=== PATIENT | male | born 1935 | race Caucasian/White ===

== ENCOUNTER → 2023-04-06 12:00 | Outpatient (CLI) | payer MEDICARE, OTHER, SELFPAY ==
[2023-04-06 16:36] LABS: Basophils % 0.5 % (0.1-2.0); Eosinophils # 0.2 K/mm3 (0.0-0.4); Eosinophils % 2.5 % (0.1-12.0); Hematocrit 39.2 % (42.0-52.0); Hemoglobin 12.4 g/dL (14.1-18.0); Lymphocytes # 1.5 K/mm3 (0.7-4.5); Lymphocytes % 20.6 % (10-50); Mean Corpuscular HGB Conc 31.7 g/dL (31.8-35.4); Mean Corpuscular Hemoglobin 31.9 pg (27.0-31.2); Mean Corpuscular Volume 100.7 fl (80-94); Mean Platelet Volume 10.8 fl (7.4-10.4); Monocytes # 0.6 K/mm3 (0.1-1.0); Monocytes % 8.6 % (1.7-9.3); Neutrophils % 67.7 % (37.0-80.0); Platelet Count 301 K/mm3 (142-424); Red Cell Distribution Width 12.5 % (11.5-17.5); White Blood Count 7.3 K/mm3 (4.8-10.8)
[2023-04-06 18:11] LABS: Alanine Aminotransferase 22 U/L (12-78); Albumin Level 4.2 g/dl (3.5-5.0); Albumin/Globulin Ratio 1.4 (1.1-1.8); Alkaline Phosphatase 155 U/L (38-126); Anion Gap 14.8 mEq/L (5-15); Aspartate Amino Transferase 36 U/L (17-59); Bilirubin,Total 0.8 mg/dl (0.2-1.3); Blood Urea Nitrogen 21 mg/dl (9-20); Calcium 9.2 mg/dl (8.4-10.2); Carbon Dioxide 31 mmol/L (22.0-30.0); Chloride 98 mmol/L (98-107); Chol/HDL Ratio 6.4 (1-3.5); Cholesterol 197 mg/dl (140-200); Estimated Glomerular Filt Rate 63 ml/min (>60); GFR (African American) 76 ML/MIN (>60); Globulin 2.9 g/dL (1.3-3.2); Glucose 107 mg/dl (74-100); HDL Cholesterol 31 mg/dl (40-60); Potassium 4.8 mmoL/L (3.5-5.1); Sodium 139 mmol/L (136-145); Total Protein,Serum 7.1 g/dl (6.3-8.2); Triglycerides 205 mg/dl (30-150); VLDL Cholesterol 41 mg/dL (0-40)
[2023-04-06 18:20] LABS: Direct LDL Cholesterol 102.47 mg/dL (100-129)
[2023-04-06 22:02] LABS: Thyroid Stimulating Hormone 1.58 uIU/mL (0.465-4.68)
== END ==
PROVIDERS: PCP Family Medicine; Visit Provider Family Medicine
DX: I10 Essential (primary) hypertension (principal); Z00.00 Encounter for general adult medical examination without abnormal findings; E03.9 Hypothyroidism, unspecified
CPT/HCPCS: 80053; 80061; 84443; 85025

== ENCOUNTER → 2023-09-17 16:39 | Outpatient (CLI) | payer MEDICARE, OTHER, SELFPAY ==
[2023-09-17 16:43] LABS: Alanine Aminotransferase 25 U/L (12-78); Albumin/Globulin Ratio 1.5 (1.1-1.8); Alkaline Phosphatase 119 U/L (38-126); Anion Gap 10.4 mEq/L (5-15); Aspartate Amino Transferase 45 U/L (17-59); Bilirubin,Total 0.6 mg/dl (0.2-1.3); Blood Urea Nitrogen 18 mg/dl (9-20); Calcium 8.7 mg/dl (8.4-10.2); Carbon Dioxide 32 mmol/L (22.0-30.0); Chloride 99 mmol/L (98-107); Chol/HDL Ratio 4.7 (1-3.5); Cholesterol 145 mg/dl (140-200); Estimated Glomerular Filt Rate 63 ml/min (>60); GFR (African American) 76 ML/MIN (>60); Globulin 2.6 g/dL (1.3-3.2); Glucose 90 mg/dl (74-100); HDL Cholesterol 31 mg/dl (40-60); Potassium 4.4 mmoL/L (3.5-5.1); Sodium 137 mmol/L (136-145); Total Protein,Serum 6.6 g/dl (6.3-8.2); Triglycerides 136 mg/dl (30-150); VLDL Cholesterol 27 mg/dL (0-40)
[2023-09-17 16:47] LABS: Basophils % 0.3 % (0.1-2.0); Eosinophils # 0.1 K/mm3 (0.0-0.4); Eosinophils % 1.4 % (0.1-12.0); Hematocrit 37.5 % (42.0-52.0); Hemoglobin 12.3 g/dL (14.1-18.0); Lymphocytes # 1.3 K/mm3 (0.7-4.5); Lymphocytes % 26.4 % (10-50); Mean Corpuscular HGB Conc 32.8 g/dL (31.8-35.4); Mean Corpuscular Hemoglobin 33.5 pg (27.0-31.2); Mean Corpuscular Volume 102.2 fl (80-94); Mean Platelet Volume 10.2 fl (7.4-10.4); Monocytes # 0.7 K/mm3 (0.1-1.0); Monocytes % 14.7 % (1.7-9.3); Neutrophils # 2.9 K/mm3 (1.8-7.8); Neutrophils % 57.2 % (37.0-80.0); Platelet Count 241 K/mm3 (142-424); Red Blood Count 3.67 M/mm3 (4.60-6.20); Red Cell Distribution Width 13.1 % (11.5-17.5)
[2023-09-17 16:54] LABS: Direct LDL Cholesterol 76.06 mg/dL (100-129)
[2023-09-17 17:13] LABS: Thyroid Stimulating Hormone 1.11 uIU/mL (0.465-4.68)
== END ==
PROVIDERS: PCP Family Medicine; Visit Provider Family Medicine
DX: I10 Essential (primary) hypertension (principal); E03.9 Hypothyroidism, unspecified; Z79.899 Other long term (current) drug therapy
CPT/HCPCS: 80053; 80061; 84443; 85025

== ENCOUNTER → 2023-09-23 16:39 | Outpatient (CLI) | payer MEDICARE, OTHER, SELFPAY | PROVIDERS: PCP Family Medicine; Visit Provider Family Medicine | DX: R35.0 Frequency of micturition (principal); B96.29 Other Escherichia coli [E. coli] as the cause of diseases classified elsewhere; B96.89 Other specified bacterial agents as the cause of diseases classified elsewhere | CPT/HCPCS: 87086 ==

== ENCOUNTER 2023-10-21 16:35 | Outpatient (CLI) | payer MEDICARE, OTHER, SELFPAY ==
[2023-10-21 17:42] LABS: Prostate Specific Ag Screen 0.8 ng/ml (0.0-4.0)
== END 2023-10-21 23:59 ==
LOC: LAB.DROPOF 16:35
PROVIDERS: PCP Family Medicine; Visit Provider Family Medicine
DX: Z12.5 Encounter for screening for malignant neoplasm of prostate (principal)
CPT/HCPCS: G0103

== ENCOUNTER 2024-01-15 12:39 | Emergency (ER) | payer MEDICARE, OTHER, SELFPAY ==
[2024-01-15] VITALS (19 sets, daily range): BP systolic 100–211; BP diastolic 67–110; PULSE 72–104; RESP 14–18; TEMP 36.6–36.7; O2SAT 91–100; BMI 28.1; BMI 24.4
--- NOTE | 2024-01-15 12:40 | CT_ITS ---
FINAL REPORT TECHNIQUE: Thin section axial CT with IV contrast supplemented with multiplanar reconstruction under CT angiogram protocol. This study was performed with techniques to keep radiation doses as low as reasonably achievable (ALARA). Individualized dose reduction techniques using automated exposure control or adjustment of mA and/or kV according to the patient''s size were employed. NASCET criteria was utilized during interpretation. CLINICAL HISTORY: L sided weakness FINDINGS: Aortic arch: Arch shows no significant narrowing. Great vessel origins are widely patent. Right carotid: No significant stenosis is seen of the cervical common or internal carotid artery. Left carotid: There is calcified plaque at the carotid bulb without significant stenosis. Vertebral: Left vertebral artery is dominant. No significant stenosis is present. There is a 19 mm right thyroid lobe nodule. IMPRESSION: No evidence of significant stenosis. Right thyroid lobe nodule, consider correlation with thyroid ultrasound. Reviewed, Interpreted and Dictated by Enrike Dong III, MD Transcribed by Sapna Caballero Authenticated and [facility]
--- NOTE | 2024-01-15 12:40 | CT_ITS ---
FINAL REPORT TECHNIQUE: Thin section axial CT with IV contrast supplemented with multiplanar reconstruction under CT angiogram protocol. 3-D reconstructions were performed. This study was performed with techniques to keep radiation doses as low as reasonably achievable (ALARA). Individualized dose reduction techniques using automated exposure control or adjustment of mA and/or kV according to the patient''s size were employed. CLINICAL HISTORY: L extremities weak, concern for stroke. FINDINGS: The distal vertebral, basilar and distal internal carotid arteries have an unremarkable appearance. No aneurysm is seen. Major intracranial vessels are patent without significant stenosis. IMPRESSION: No evidence of significant stenosis. Reviewed, Interpreted and Dictated by Enrike Dong III, MD Transcribed by Sapna Caballero Authenticated and [facility]
--- NOTE | 2024-01-15 12:40 | CT_ITS ---
FINAL REPORT CLINICAL HISTORY: L Extremity Weakness. stroke alert hx of stroke FINDINGS: Axial images of the head were obtained without contrast. Coronal reformatted images were also obtained. This study was performed with techniques to keep radiation doses as low as reasonably achievable (ALARA). Individualized dose reduction techniques using automated exposure control or adjustment of mA and/or kV according to the patient's size were employed. Motion artifact is identified on many of the images. There is generalized age-appropriate atrophy. Periventricular low-attenuation areas are seen consistent with moderate chronic ischemic changes. There is mild to moderate ventriculomegaly which is somewhat greater than expected for the degree of atrophy worrisome for hydrocephalus. There is no evidence of intracranial hemorrhage or mass. There is no evidence of acute infarct. There is no evidence of shift of the midline structures. No skull abnormality is seen on the bone window images. IMPRESSION: Atrophy and moderate periventricular chronic ischemic changes. [id number] ventriculomegaly worrisome for hydrocephalus. Reviewed, Interpreted and Dictated by Enrike Dong III, MD Transcribed by Sapna Caballero Authenticated and [facility]
--- NOTE | 2024-01-15 12:42 | ECG_ITS ---
APPROVED REPORT Exam: Resting ECG HR:74 bpm ECG Measurements Heart Rate 74 AXES CO 232 P 56 QRSd 106 QRS 60 QT 409 T 34 QTc 436 Conclusion SINUS RHYTHM WITH FIRST DEGREE AV BLOCK ABNORMAL ECG Electronically signed by : MARIANA REAL, 01/15/2024 16:15:48
--- NOTE | 2024-01-15 12:43 | PC.NURSE ---
PT to CT upon arrival with EMS
--- NOTE | 2024-01-15 12:47 | ED_ITS ---
Discharge Plan Disposition Patient Disposition: Home, Self-Care Condition: Fair Chief Complaint: Neuro Symptoms/Deficit Prescriptions Prescriptions: No Action cholecalciferol (vitamin D3) [Vitamin D3] 50 mcg (2,000 unit) capsule 50 mcg PO DAILY aspirin 81 mg tablet,delayed release (DR/EC) 81 mg PO DAILY meclizine 12.5 mg tablet 12.5 mg PO BID 90 Days Qty: 180 0RF omeprazole 20 mg capsule,delayed release(DR/EC) 20 mg PO DAILY 90 Days Qty: 90 0RF pravastatin 20 mg tablet 20 mg PO HS 90 Days Qty: 90 0RF levothyroxine 88 mcg tablet 88 mcg PO DAILY 90 Days Qty: 90 0RF lisinopril 10 mg tablet 10 mg PO DAILY Qty: 90 1RF Referrals Follow up/Referrals: Jake Bermudez MD [Primary Care Provider] - See instructions Clinical Impressions Clinical Impression: Acute CVA (cerebrovascular accident), Seizure Stand Alone Forms Stand Alone Forms: Transfer Record - ED Discharge ED Provider: Sb Ansari General Adult HPI General Chief complaint: Neuro Symptoms/Deficit Stated complaint: stroke like symptoms Time Seen by Provider: 01/15/24 12:40 History of Present Illness HPI narrative: Patient is a 88-year-old male with past medical history of hypertension, hypothyroidism, previous facial droop secondary to dental procedure on the right that is mild, M?ni?re's disease on meclizine walking with a cane right-handed, conversational at baseline who presents emergency department for evaluation of strokelike symptoms. Last known normal 10:45 AM patient was noticed to be stumbling after walking down the stairs, difficulty speaking, progressive inability to move his left side. Upon EMS arrival patient was able to speak a little bit however had no use of the left side of his body, became aphasic on the way here. Fingerstick blood glucose acceptable. No trauma. Upon arrival patient is unable to converse. Related Data Home Medications Medication Instructions Recorded Confirmed aspirin 81 mg tablet,delayed 81 mg PO DAILY 04/06/23 12/09/23 release cholecalciferol (vitamin D3) 50 50 mcg PO DAILY 04/06/23 12/09/23 mcg (2,000 unit) capsule (Vitamin D3) Previous Rx's Medication Instructions Recorded meclizine 12.5 mg tablet 12.5 mg PO BID dizziness 90 days 09/17/23 #180 tabs omeprazole 20 mg capsule,delayed 20 mg PO DAILY 90 days #90 caps 09/17/23 release pravastatin 20 mg tablet 20 mg PO HS 90 days #90 tabs 09/17/23 levothyroxine 88 mcg tablet 88 mcg PO DAILY thyroid 90 days 12/14/23 #90 tabs lisinopril 10 mg tablet 10 mg PO DAILY #90 tabs 01/03/24 Allergies Allergy/AdvReac Type Severity Reaction Status Date / Time INGREDIENT: NO KNOWN - NO Allergy Unknown Uncoded 12/09/23 13:01 KNOWN DRUG ALLERGY [facility] Disclaimer: The information contained in this section may have been updated after the patient was seen, as this information can be updated by other users. Medical History Basal cell carcinoma Clavicle fracture CVA (cerebral vascular accident) Gallstones Hypertension Hypothyroidism Meniere's disease Mild acid reflux Squamous cell cancer of scalp and skin of neck Surgical History H/O endarterectomy H/O hernia repair Hx of cataract surgery Social History Smoking Status: Former smoker smoking status stop date: 10/12/1979 alcohol intake: never substance use type: denies use current occupational status: retired Travel in the last 8 weeks: None household members: spouse housing: house ROS Obtained: Yes unobtainable due to mental condition Physical Exam General General appearance: other (Eyes open, nonsensical interaction with surroundings, does not follow commands) Head Head exam: atraumatic and normocephalic Eye Eye exam: Present PERRL ENT ENT exam: Present mucous membranes moist Neck Neck exam: Present normal inspection Chest Chest inspection: Present normal inspection and symmetric chest wall rise Respiratory Respiratory exam: Present normal lung sounds bilaterally; Absent respiratory distress Cardiovascular Cardiovascular exam: Present regular rate and normal rhythm Abdominal Exam Abdominal exam: Present soft; Absent tenderness Extremities Exam Extremities exam: Present normal inspection Neurological Exam Neurological exam: Present other (Eyes open) Expanded Neurological Exam Comment: Eyes open, moves to pain. Aphasic, does not follow blink and squeeze commands, extraocular movements to the right intact, do not cross midline and do not correct with oculocephalic reflex. Visual bishop unable to assess, patient does not grimace either side of his face to noxious stimuli, left arm drifts to bed, right arm drifts to bed, left lower extremity some effort against gravity, right lower extremity drifts to bed, does not understand limb ataxia test, react symmetrically to pain in all extremities, global aphasia, mute and an arthritic, does not react to confrontation left visual bishop. NIH 22. Skin Skin exam: Present warm and dry Medical Decision Making Allen Inquiry Pt receiving controlled substance: No Vital Signs: 01/15/24 12:40 01/15/24 13:00 01/15/24 13:30 Temperature 97.9 F Temperature Source Oral Pulse Rate 72 74 Pulse Rate [Left Radial] 86 Respiratory Rate 15 18 18 Blood Pressure 163/100 H 193/98 H Blood Pressure [Right Arm] 163/100 H Blood Pressure Mean 121 129 Blood Pressure Mean [Right Arm] 121 02 Sat by Pulse Oximetry 99 98 98 Oxygen Delivery Method Room Air Lab Data Lab Results 01/15/24 12:43: WBC 7.0, RBC 3.58 L, Hgb 12.0 L, Hct 37.1 L, MCV 103.6 H, MCH 33.4 H, MCHC 32.3, RDW 12.9, Plt Count 234, MPV 9.6, Neut % (Auto) 73.8, Lymph % (Auto) 17.2, Upson % (Auto) 6.8, Eos % (Auto) 1.5, Baso % (Auto) 0.7, Neut # (Auto) 5.1, Lymph # (Auto) 1.2, Upson # (Auto) 0.5, Eos # (Auto) 0.1, Baso # (Auto) 0.1, Sodium 139, Potassium 4.3, Chloride 103, Carbon Dioxide 33 H, Anion Gap 7.3, BUN 19, Creatinine 1.00, Estimated Creat Clear 59, Estimated GFR 71, Est GFR ( Amer) 85, Glucose 129 H, Calcium 9.1, Total Bilirubin 0.7, AST 39, ALT 21, Alkaline Phosphatase 112, Troponin I < 0.01, Total Protein 6.6, Albumin 3.9, Globulin 2.7, Albumin/Globulin Ratio 1.4 01/15/24 13:33: VBG pH 7.28 L, VBG pCO2 57.8 H, VBG pO2 52.0 H, VBG HCO3 26.4, V BG Total CO2 28.1 H, VBG O2 Saturation 80.4 H, VBG Base Excess -0.4, VBG Lactic Acid 1.1 01/15/24 12:43 01/15/24 12:43 Orders (Tests/Meds): ED MEDICATIONS Generic Name Dose Route Start Last Admin Trade Name Freq PRN Reason Stop Dose Admin Sodium Chloride 10 ml 01/15/24 12:58 Sodium Chloride 0.9% 10ml Syr (Rad Only) IV 02/14/24 12:57 NEEDED PRN Maintain IV Site Discontinued Medications Generic Name Dose Route Start Last Admin Trade Name Freq PRN Reason Stop Dose Admin Alteplase, Recombinant 73.5 mg 01/15/24 13:45 01/15/24 14:28 Alteplase Recombinant 100mg Vial IV 01/15/24 13:46 73.5 mg ONCE ONE Administration Iopamidol 100 ml 01/15/24 12:58 01/15/24 12:59 Iopamidol-370 (76%);100ml Bottle IV 01/15/24 12:59 100 ml ONCE ONE Administration Sodium Chloride 50 ml 01/15/24 12:58 01/15/24 12:58 0.9 % Sodium Chloride 50 Ml Vial IV 01/15/24 12:59 50 ml ONCE ONE Administration ORDERS Category Date Time Status CT angio head Stat Cat Scan 01/15/24 12:[address] angio neck Stat Cat Scan 01/15/24 12:[address] head/brain wo con Stat Cat Scan 01/15/24 12:40 Completed CBC w/Auto Diff [Complete Blood Count Auto Diff] Stat Lab 01/15/24 12:43 Completed CMP [Comprehensive Metabolic Panel] Stat Lab 01/15/24 12:43 Completed Troponin I Q3H Lab 01/15/24 16:15 Ordered Troponin I Q3H Lab 01/15/24 19:15 Ordered Troponin I Stat Lab 01/15/24 12:43 Completed UA [Urinalysis and Microscopic] Stat Lab 01/15/24 13:26 Ordered VBG [Venous Blood Gas] Stat RT 01/15/24 13:33 Completed ECG Data Tracing #1: Independently interpreted by me, rate of 74, rhythm is regular, axis is normal, no ST elevation in anatomical contiguous leads. QTc 436. Medical Decision Narrative: In summary patient is a 88-year-old male with past medical history described above who presents emergency department for evaluation of strokelike symptoms and encephalopathy. Patient is aphasic upon arrival, NIH 22. Fingerstick blood glucose acceptable. EKG at bedside no significant ST elevation in anatomical contiguous leads. Last known normal 10:45 AM. Hematologic labs obtained patient undergo rapid stroke protocol. Viz. AI activated, [facility] states no LVO. I spoke with neurologist Dr. Sidhu, patient has an NIH of 22, his deficits are not lining up with a major vascular distribution and given a high NIH he thinks a stroke mimic is a possibility and cannot say whether or not this is true CVA. Given that patient is within the window and CVA is just is likely after formal CT reads are back tPA should be offered as long as patient does not meet exclusion criteria. Initial workup reviewed by me, hematologic labs are nonactionable, no PETER or critical electrolyte abnormality. CTA shows no large vessel occlusion. Incidental right thyroid lobe nodule. Noncontrasted CT scan shows atrophy with moderate periventricular chronic ischemic changes, mild to moderate ventriculomegaly out of proportion to age-related atrophy worrisome for hydrocephalus. The case was again discussed with [facility], neurologist on-call suspect ex vacuo ventriculomegaly which is a normal variant. Recommend tPA administration in the window given that stroke deficits are disabling. Shared decision-making discussion was had at bedside, they wish to proceed with tPA. Prior to tPA administration patient had a generalized tonic-clonic seizure lasting approximately 2 minutes in duration for which 2 mg of Ativan was given with good effect. Patient continued to protect his airway. Seizure is possible and stroke so we will proceed with tPA. Patient does not have any contraindications, blood pressure was lowered with push dose labetalol 10 mg. tPA administered. Patient was transported to [facility] for continued evaluation at this time. Critical Care Critical Care Time Critical Care Time: Yes Attestation: On 01/15/24, the high probability of a clinically significant, sudden or life threatening deterioration of the following system(s) required my full and direct attention, intervention and personal management. The time I documented below is in addition to time spent performing reported procedures but includes the following listed in this critical care notation. Total Time Total Critical Care Time: 45
--- NOTE | 2024-01-15 12:52 | PC.NURSE ---
Dr. Ansari, Paul Ng RN, Ana Juares RN, and Donya Chandler EMT escorted pt to CT scan directly upon arrival with [facility]. Radiology notified Stroke Alert CT scan. FS and blood collected from EMS PIV ([id number]). This occurred at 1243
[2024-01-15 12:58] LABS: Basophils # 0.1 K/mm3 (0-0.2); Basophils % 0.7 % (0.1-2.0); Eosinophils # 0.1 K/mm3 (0.0-0.4); Eosinophils % 1.5 % (0.1-12.0); Hematocrit 37.1 % (42.0-52.0); Lymphocytes # 1.2 K/mm3 (0.7-4.5); Lymphocytes % 17.2 % (10-50); Mean Corpuscular HGB Conc 32.3 g/dL (31.8-35.4); Mean Corpuscular Hemoglobin 33.4 pg (27.0-31.2); Mean Corpuscular Volume 103.6 fl (80-94); Mean Platelet Volume 9.6 fl (7.4-10.4); Monocytes # 0.5 K/mm3 (0.1-1.0); Monocytes % 6.8 % (1.7-9.3); Neutrophils # 5.1 K/mm3 (1.8-7.8); Neutrophils % 73.8 % (37.0-80.0); Platelet Count 234 K/mm3 (142-424); Red Blood Count 3.58 M/mm3 (4.60-6.20); Red Cell Distribution Width 12.9 % (11.5-17.5)
[2024-01-15] MEDS: 0.9 % SODIUM CHLORIDE 50 ML VIAL IV (12:58)
[2024-01-15] MEDS: IOPAMIDOL-370 (76%);100ML BOTTLE 100 ML IV (12:59)
[2024-01-15 13:13] LABS: Chloride 103 mmol/L (98-107); Potassium 4.3 mmoL/L (3.5-5.1); Sodium 139 mmol/L (136-145)
--- NOTE | 2024-01-15 13:15 | PC.NURSE ---
Dr Ansari speaking with [place] stroke team
[2024-01-15 13:16] LABS: Alanine Aminotransferase 21 U/L (12-78); Albumin Level 3.9 g/dl (3.5-5.0); Albumin/Globulin Ratio 1.4 (1.1-1.8); Alkaline Phosphatase 112 U/L (38-126); Anion Gap 7.3 mEq/L (5-15); Aspartate Amino Transferase 39 U/L (17-59); Bilirubin,Total 0.7 mg/dl (0.2-1.3); Blood Urea Nitrogen 19 mg/dl (9-20); Carbon Dioxide 33 mmol/L (22.0-30.0); Creatinine Clearance Estimated 59 mL/min (50-200); Estimated Glomerular Filt Rate 71 ml/min (>60); GFR (African American) 85 ML/MIN (>60); Globulin 2.7 g/dL (1.3-3.2); Glucose 129 mg/dl (74-100); Total Protein,Serum 6.6 g/dl (6.3-8.2)
[2024-01-15 13:17] LABS: Calcium 9.1 mg/dl (8.4-10.2)
--- NOTE | 2024-01-15 13:20 | PC.NURSE ---
Pt's left hearing aid given to pt's in a green cup
[2024-01-15 13:34] LABS: Lactate Venous 1.1 mmol/L (0.4-2.0); VBG Base Excess -0.4 mmol/L (-2.4-2.3); VBG HCO3 26.4 mmol/L (23-30); VBG Oxygen Saturation 80.4 % (50-70); VBG PCO2 57.8 mmol/L (35-51); VBG PH 7.28 mmol/L (7.31-7.41); VBG Total CO2 28.1 mmol/L (23-27)
[2024-01-15 13:38] LABS: Troponin I < 0.01 ng/ml (0.00-0.034)
--- NOTE | 2024-01-15 13:43 | PC.NURSE ---
Dr Ansari speaking with Dr Hatch at
--- NOTE | 2024-01-15 14:18 | ECG_ITS ---
APPROVED REPORT Exam: Resting ECG HR:104 bpm ECG Measurements Heart Rate 104 AXES PA 217 P 61 QRSd 109 QRS 55 QT 354 T -5 QTc 414 Conclusion SINUS TACHYCARDIA WITH FIRST DEGREE AV BLOCK POSSIBLE LATERAL MYOCARDIAL INFARCTION , OF INDETERMINATE AGE [30 ms Q WAVE IN I/aVL/V5/V6] PROBABLE INFERIOR MYOCARDIAL INFARCTION , OF INDETERMINATE AGE [35 ms Q WAVE IN II/aVF] Electronically signed by : CATRACHITA GIL, 01/15/2024 19:25:45
[2024-01-15] MEDS: ALTEPLASE RECOMBINANT 100MG VIAL 73.5 MG IV (14:28)
[2024-01-15] MEDS: LORazepam 2MG/ML VIAL 2 MG IV (14:46)
== END 2024-01-15 15:43 | disposition home or self-care (01) ==
PROVIDERS: Emergency Provider Emergency Medicine; PCP Family Medicine
DX: I63.9 Cerebral infarction, unspecified (principal); I44.0 Atrioventricular block, first degree; R00.0 Tachycardia, unspecified; R56.9 Unspecified convulsions; I10 Essential (primary) hypertension; E03.9 Hypothyroidism, unspecified; Z87.891 Personal history of nicotine dependence; R29.722 NIHSS score 22
CPT/HCPCS: 70450; 70496; 70498; 80053; 82803; 84484; 85025; 93005; 96374; 96375; 99291; J2997; Q9967

== ENCOUNTER 2024-02-17 08:33 | Outpatient (CLI) | payer MEDICARE, OTHER, SELFPAY | END 2024-02-17 23:59 | disposition home or self-care (01) | LOC: RT 08:35 | PROVIDERS: PCP Family Medicine; Visit Provider Specialist | DX: I63.9 Cerebral infarction, unspecified (principal); I48.0 Paroxysmal atrial fibrillation; R56.9 Unspecified convulsions | CPT/HCPCS: 93270 ==

== ENCOUNTER 2024-04-13 10:39 | Outpatient (CLI) | payer MEDICARE, OTHER, SELFPAY ==
[2024-04-13 17:30] LABS: Basophils # 0.1 K/mm3 (0-0.2); Basophils % 0.7 % (0.1-2.0); Eosinophils # 0.1 K/mm3 (0.0-0.4); Eosinophils % 1.3 % (0.1-12.0); Hematocrit 32.4 % (42.0-52.0); Hemoglobin 10.8 g/dL (14.1-18.0); Lymphocytes # 1.8 K/mm3 (0.7-4.5); Lymphocytes % 20.2 % (10-50); Mean Corpuscular HGB Conc 33.3 g/dL (31.8-35.4); Mean Corpuscular Hemoglobin 33.3 pg (27.0-31.2); Mean Corpuscular Volume 100.2 fl (80-94); Mean Platelet Volume 9.6 fl (7.4-10.4); Monocytes # 0.7 K/mm3 (0.1-1.0); Monocytes % 7.9 % (1.7-9.3); Neutrophils # 6.2 K/mm3 (1.8-7.8); Neutrophils % 69.9 % (37.0-80.0); Platelet Count 355 K/mm3 (142-424); Red Blood Count 3.23 M/mm3 (4.60-6.20); Red Cell Distribution Width 14.8 % (11.5-17.5); White Blood Count 8.9 K/mm3 (4.8-10.8)
[2024-04-13 17:33] LABS: Alanine Aminotransferase 31 U/L (12-78); Albumin Level 3.6 g/dl (3.5-5.0); Albumin/Globulin Ratio 1.2 (1.1-1.8); Alkaline Phosphatase 119 U/L (38-126); Anion Gap 13.1 mEq/L (5-15); Aspartate Amino Transferase 45 U/L (17-59); Blood Urea Nitrogen 19 mg/dl (9-20); Calcium 8.8 mg/dl (8.4-10.2); Carbon Dioxide 29 mmol/L (22.0-30.0); Chloride 100 mmol/L (98-107); Estimated Glomerular Filt Rate 70 ml/min (>60); GFR (African American) 85 ML/MIN (>60); Glucose 116 mg/dl (74-100); Potassium 4.1 mmoL/L (3.5-5.1); Sodium 138 mmol/L (136-145); Total Protein,Serum 6.6 g/dl (6.3-8.2)
== END 2024-04-13 23:59 | disposition home or self-care (01) ==
LOC: LAB.DROPOF 04-14 10:39
PROVIDERS: PCP Family Medicine; Visit Provider Family Medicine
DX: I10 Essential (primary) hypertension (principal)
CPT/HCPCS: 80053; 85025

== ENCOUNTER 2024-04-19 16:56 | Outpatient (CLI) | payer MEDICARE, OTHER, SELFPAY ==
[2024-04-19 17:19] LABS: Basophils % 0.4 % (0.1-2.0); Eosinophils # 0.1 K/mm3 (0.0-0.4); Eosinophils % 1.4 % (0.1-12.0); Hematocrit 32.3 % (42.0-52.0); Hemoglobin 10.6 g/dL (14.1-18.0); Lymphocytes # 1.3 K/mm3 (0.7-4.5); Lymphocytes % 17.4 % (10-50); Mean Corpuscular HGB Conc 32.9 g/dL (31.8-35.4); Mean Corpuscular Hemoglobin 33.1 pg (27.0-31.2); Mean Corpuscular Volume 100.6 fl (80-94); Mean Platelet Volume 9.9 fl (7.4-10.4); Monocytes # 0.7 K/mm3 (0.1-1.0); Monocytes % 9.2 % (1.7-9.3); Neutrophils # 5.4 K/mm3 (1.8-7.8); Neutrophils % 71.7 % (37.0-80.0); Platelet Count 314 K/mm3 (142-424); Red Blood Count 3.21 M/mm3 (4.60-6.20); Red Cell Distribution Width 14.6 % (11.5-17.5); White Blood Count 7.5 K/mm3 (4.8-10.8)
== END 2024-04-19 23:59 | disposition home or self-care (01) ==
LOC: LAB.DROPOF 16:57
PROVIDERS: PCP Family Medicine; Visit Provider Family Medicine
DX: D64.9 Anemia, unspecified (principal)
CPT/HCPCS: 85025

== ENCOUNTER 2024-05-17 16:40 | Outpatient (CLI) | payer MEDICARE, OTHER, SELFPAY ==
[2024-05-17 16:56] LABS: Basophils % 0.5 % (0.1-2.0); Eosinophils # 0.1 K/mm3 (0.0-0.4); Eosinophils % 0.9 % (0.1-12.0); Hematocrit 35.8 % (42.0-52.0); Hemoglobin 12.1 g/dL (14.1-18.0); Lymphocytes # 1.6 K/mm3 (0.7-4.5); Lymphocytes % 26.3 % (10-50); Mean Corpuscular HGB Conc 33.7 g/dL (31.8-35.4); Mean Corpuscular Hemoglobin 33.2 pg (27.0-31.2); Mean Corpuscular Volume 98.4 fl (80-94); Mean Platelet Volume 9.2 fl (7.4-10.4); Monocytes # 0.6 K/mm3 (0.1-1.0); Monocytes % 10.4 % (1.7-9.3); Neutrophils # 3.7 K/mm3 (1.8-7.8); Neutrophils % 61.8 % (37.0-80.0); Platelet Count 274 K/mm3 (142-424); Red Blood Count 3.64 M/mm3 (4.60-6.20); Red Cell Distribution Width 13.9 % (11.5-17.5)
== END 2024-05-17 23:59 | disposition home or self-care (01) ==
PROVIDERS: PCP Family Medicine; Visit Provider Family Medicine
DX: D64.9 Anemia, unspecified (principal)
CPT/HCPCS: 85025

== ENCOUNTER 2024-07-14 16:25 | Outpatient (CLI) | payer MEDICARE, OTHER, SELFPAY ==
[2024-07-14 16:33] LABS: Albumin Level 3.8 g/dl (3.5-5.0); Basophils # 0.1 K/mm3 (0-0.2); Basophils % 0.6 % (0.1-2.0); Chloride 103 mmol/L (98-107); Eosinophils # 0.1 K/mm3 (0.0-0.4); Eosinophils % 1.8 % (0.1-12.0); Hematocrit 38.2 % (42.0-52.0); Hemoglobin 12.1 g/dL (14.1-18.0); Lymphocytes # 1.4 K/mm3 (0.7-4.5); Lymphocytes % 19.1 % (10-50); Mean Corpuscular HGB Conc 31.8 g/dL (31.8-35.4); Mean Corpuscular Hemoglobin 33.5 pg (27.0-31.2); Mean Corpuscular Volume 105.5 fl (80-94); Mean Platelet Volume 9.5 fl (7.4-10.4); Monocytes # 0.5 K/mm3 (0.1-1.0); Monocytes % 6.9 % (1.7-9.3); Neutrophils # 5.4 K/mm3 (1.8-7.8); Neutrophils % 71.6 % (37.0-80.0); Platelet Count 286 K/mm3 (142-424); Potassium 4.7 mmoL/L (3.5-5.1); Red Blood Count 3.62 M/mm3 (4.60-6.20); Red Cell Distribution Width 13.3 % (11.5-17.5); Sodium 140 mmol/L (136-145); White Blood Count 7.5 K/mm3 (4.8-10.8)
[2024-07-14 16:35] LABS: Alanine Aminotransferase 28 U/L (12-78); Anion Gap 11.7 mEq/L (5-15); Aspartate Amino Transferase 45 U/L (17-59); Blood Urea Nitrogen 25 mg/dl (9-20); Carbon Dioxide 30 mmol/L (22.0-30.0); Estimated Glomerular Filt Rate 70 ml/min (>60); GFR (African American) 85 ML/MIN (>60)
[2024-07-14 16:36] LABS: Albumin/Globulin Ratio 1.2 (1.1-1.8); Alkaline Phosphatase 150 U/L (38-126); Bilirubin,Total 0.9 mg/dl (0.2-1.3); Calcium 9.4 mg/dl (8.4-10.2); Chol/HDL Ratio 3.4 (1-3.5); Cholesterol 126 mg/dl (140-200); Globulin 3.1 g/dL (1.3-3.2); Glucose 110 mg/dl (74-100); HDL Cholesterol 37 mg/dl (40-60); Total Protein,Serum 6.9 g/dl (6.3-8.2); Triglycerides 99 mg/dl (30-150); VLDL Cholesterol 20 mg/dL (0-40)
[2024-07-14 17:06] LABS: Thyroid Stimulating Hormone 1.77 uIU/mL (0.465-4.68)
== END 2024-07-14 23:59 | disposition home or self-care (01) ==
LOC: LAB.DROPOF 16:25
PROVIDERS: PCP Family Medicine; Visit Provider Family Medicine
DX: E03.9 Hypothyroidism, unspecified (principal); I10 Essential (primary) hypertension; E78.5 Hyperlipidemia, unspecified
CPT/HCPCS: 80053; 80061; 84443; 85025

== ENCOUNTER 2024-09-28 14:40 | Outpatient (CLI) | payer MEDICARE, OTHER, SELFPAY | END 2024-09-28 23:59 | disposition home or self-care (01) | LOC: LAB.DROPOF 09-29 12:16 | PROVIDERS: PCP Family Medicine; Visit Provider Family Medicine | DX: R39.9 Unspecified symptoms and signs involving the genitourinary system (principal) | CPT/HCPCS: 87086; 87088; 87186 ==

== ENCOUNTER 2024-10-16 10:53 | Emergency (ER) | payer MEDICARE, OTHER, SELFPAY ==
[2024-10-16 10:55] VITALS: BP 124/65; PULSE 95; RESP 18; TEMP 36.6; O2SAT 98; BMI 26.3
[2024-10-16] MEDS: predniSONE 20MG TAB 40 MG PO (11:17)
[2024-10-16] MEDS: diphenhydrAMINE 50MG CAPSULE 50 MG PO (11:17)
--- NOTE | 2024-10-16 11:20 | HMH.EDGENADL ---
Discharge Plan Disposition Patient Disposition: Home, Self-Care Prescriptions Prescriptions: New prednisone 50 mg tablet 50 mg PO DAILY 3 Days Qty: 3 0RF No Action aspirin 81 mg tablet,delayed release (DR/EC) 81 mg PO DAILY ascorbate calcium (vitamin C) 500 mg tablet 500 mg PO DAILY ferrous sulfate 325 mg (65 mg iron) tablet,delayed release (DR/EC) 325 mg PO DAILY meclizine 12.5 mg tablet 12.5 mg PO BID 90 Days Qty: 180 0RF amlodipine 5 mg tablet 5 mg PO DAILY Qty: 90 3RF atorvastatin 40 mg tablet 40 mg PO HS Qty: 90 3RF levetiracetam [Keppra] 1,000 mg tablet 1,000 mg PO BID Qty: 180 3RF levothyroxine 88 mcg tablet 88 mcg PO DAILY 90 Days Qty: 90 3RF omeprazole 20 mg capsule,delayed release(DR/EC) 20 mg PO DAILY 90 Days Qty: 90 3RF sulfamethoxazole-trimethoprim 800-160 mg tablet 1 tab PO BID Qty: 40 0RF trazodone 50 mg tablet 50 mg PO HS 30 Days Qty: 30 2RF memantine 10 mg tablet 10 mg PO BID Qty: 60 2RF quetiapine [Seroquel] 25 mg tablet 25 mg PO HS Qty: 30 2RF Referrals Follow up/Referrals: Jake Bermudez MD [Primary Care Provider] - See instructions Activity Restrictions/Add. Instructions Additional Instructions/Restrictions: Please discontinue taking your antibiotic immediately and follow-up with the person who prescribed it to change it if needed. You were near the end of the your course so I do not want to add anything on at this time. If your skin begins to peel or you have any involvement inside of your mouth or on your eyes please represent for continued evaluation. Please take your medications as prescribed and take Benadryl as the package directs as needed for itching. Clinical Impressions Clinical Impression: Erythema multiforme Instructions Patient Instructions: DI for Skin Abscess Print Language Print Language: Hebrew Discharge ED Provider: Sb Ansari General Adult HPI General Chief complaint: Skin/Abscess/Foreign Body Stated complaint: rash all over, weak Time Seen by Provider: 10/16/24 11:00 Mode of Arrival: Ambulatory Source of Information: Patient and Spouse Limitations: No Limitations Description of Symptoms (Recalled from ER Triage Doc. by RN): raswh through out body. states he has been on bactrim for 17 days. History of Present Illness HPI narrative: Patient is a 89-year-old male with past medical history of frequent urinary tract infections recently prescribed a 20-day course of Bactrim who presents emergency department for evaluation of rash. Onset was acute, over the last 24 to 48 hours, centered around his back abdomen and proximal thighs it is also since spread recently to his upper extremities. No eye or mouth involvement. No other acute complaints at this time. Related Data Home Medications ?Medication ?Instructions ?Recorded ?Confirmed aspirin 81 mg tablet,delayed 81 mg PO DAILY 04/06/23 09/28/24 release ascorbate calcium (vitamin C) 500 500 mg PO DAILY 02/09/24 09/28/24 mg tablet ferrous sulfate 325 mg (65 mg 325 mg PO DAILY 02/09/24 09/28/24 iron) tablet,delayed release Previous Rx's ?Medication ?Instructions ?Recorded meclizine 12.5 mg tablet 12.5 mg PO BID dizziness 90 days 09/17/23 #180 tabs amlodipine 5 mg tablet 5 mg PO DAILY #90 tabs 04/13/24 atorvastatin 40 mg tablet 40 mg PO HS #90 tabs 04/13/24 levetiracetam 1,000 mg tablet 1,000 mg PO BID #180 tabs 04/13/24 (Keppra) levothyroxine 88 mcg tablet 88 mcg PO DAILY thyroid 90 days 04/13/24 #90 tabs omeprazole 20 mg capsule,delayed 20 mg PO DAILY 90 days #90 caps 04/13/24 release trazodone 50 mg tablet 50 mg PO HS 30 days #30 tabs 05/31/24 memantine 10 mg tablet 10 mg PO BID #60 tabs 08/16/24 quetiapine 25 mg tablet (Seroquel) 25 mg PO HS #30 tabs 08/22/24 sulfamethoxazole 800 1 tab PO BID #40 tabs 09/28/24 mg-trimethoprim 160 mg tablet prednisone 50 mg tablet 50 mg PO DAILY erythema multiforme 10/16/24 3 days #3 tabs Allergies Allergy/AdvReac Type Severity Reaction Status Date / Time No Known Allergies Allergy Verified 09/28/24 13:57 [facility] Disclaimer: The information contained in this section may have been updated after the patient was seen, as this information can be updated by other users. Medical History History of thyroid disease Cataract GERD (gastroesophageal reflux disease) History of fracture of clavicle Squamous cell cancer of scalp and skin of neck Clavicle fracture Basal cell carcinoma CVA (cerebral vascular accident) Gallstones Meniere's disease Mild acid reflux Hypertension Hypothyroidism Surgical History H/O endarterectomy Hx of cataract surgery H/O hernia repair Social History Smoking Status: Never smoker smoking status stop date: 10/12/1979 alcohol intake: never substance use type: denies use current occupational status: retired Travel in the last 8 weeks: None household members: spouse housing: house marital status: number of children: 3 Have you lived/traveled outside [place] in past 30 days?: No Contact w/someone who lives/traveled outside US past 30 days?: No Exposure to someone with infectious disease in past 14 days?: No Do you have a fever (greater than 100.4 F or 38 C)?: No Have you tested positive for COVID-19: No Exposed to someone with COVID-19 in past 14 days?: No Do you have a sore throat?: No Do you have a cough?: No Do you have any weakness?: Yes Do you have any diarrhea?: No Are you experiencing any unusual bleeding?: No Do you have any muscle aches/pain?: No Do you have any abdominal pain?: No Are you experiencing loss of taste or smell?: No Other Medical History Have you received the Pneumonia Vaccine: Yes ROS Obtained: Yes Systems reviewed as appropriate & no additional complaints except as documented Physical Exam General General appearance: alert and in no apparent distress Head Head exam: atraumatic and normocephalic Eye Eye exam: Present PERRL and EOMI ENT ENT exam: Present mucous membranes moist Neck Neck exam: Present normal inspection Chest Chest inspection: Present normal inspection and symmetric chest wall rise Respiratory Respiratory exam: Present normal lung sounds bilaterally; Absent respiratory distress Cardiovascular Cardiovascular exam: Present regular rate and normal rhythm Abdominal Exam Abdominal exam: Present soft; Absent tenderness Extremities Exam Extremities exam: Present normal inspection Neurological Exam Neurological exam: Present alert Psychiatric Psychiatric exam: Present normal affect Skin Skin exam: Present warm, dry and rash (Scattered areas of confluent erythematous patches with central clearing, Nikolsky negative, angiographic distribution globally but spares the palms and is worse around the trunk) Medical Decision Making Medical Records Screening: Per USPSTF and CDC recommendations, given the prevalence of disease in our region, it is our hospital?s policy to screen for HIV and viral Hepatitis for all patients aged 18 and over and those with ongoing risk factors. Allen Inquiry Pt receiving controlled substance: No Vital Signs: 10/16/24 10:55 Temperature 97.9 F Temperature Source Oral Pulse Rate [Right] 95 H Respiratory Rate 18 Blood Pressure [Right Arm] 124/65 Blood Pressure Mean [Right Arm] 84 02 Sat by Pulse Oximetry 98 Orders (Tests/Meds): ED MEDICATIONS Generic Name Dose Route Start Last Admin Trade Name Freq PRN Reason Stop Dose Admin Diphenhydramine HCl 50 mg 10/16/24 11:12 10/16/24 11:17 Diphenhydramine 50mg Capsule PO 10/16/24 11:13 50 mg ONCE ONE Administration Prednisone 40 mg 10/16/24 11:12 10/16/24 11:17 Prednisone 20mg Tab PO 10/16/24 11:13 40 mg ONCE ONE Administration ORDERS Category Date Time Status HIV (1&2) Antibody Rapid Stat Lab 10/16/24 11:11 Ordered Hep C Ab with Reflex to RNA Stat Lab 10/16/24 11:11 Ordered Medical Decision Narrative: In summary patient is a 9-year-old male past medical history described above who presents emergency department for evaluation of a rash. Patient is hemodynamically stable nontoxic-appearing upon arrival, afebrile. History and physical strongly consistent with erythema multiforme based on physical exam. He does not have any mucosal involvement and is Nikolsky negative on my exam therefore workup with labs and imaging was considered but will be deferred. Patient does have some itching so it may be urticaria multiforme either way supportive care is warranted. Patient will be given a dose of steroids and diphenhydramine in the emergency department and will be discharged with a course of steroids was given multiple return precautions verbalized understanding. Critical Care Critical Care Time Critical Care Time: No
[2024-10-16 11:27] VITALS: BP 124/65; PULSE 97; RESP 18; TEMP 36.6
== END 2024-10-16 11:29 | disposition home or self-care (01) ==
PROVIDERS: Emergency Provider Emergency Medicine; PCP Family Medicine
DX: L51.9 Erythema multiforme, unspecified (principal); R21 Rash and other nonspecific skin eruption
CPT/HCPCS: 99283

== ENCOUNTER 2024-10-21 11:22 | Emergency (ER) | payer MEDICARE, OTHER, SELFPAY ==
[2024-10-21] VITALS (8 sets, daily range): BP systolic 136–145; BP diastolic 57–80; PULSE 74–88; RESP 12–18; TEMP 36.6–36.8; O2SAT 98–99; BMI 32.4
[2024-10-21 12:01] LABS: Basophils % 0.1 % (0.1-2.0); Eosinophils % 0.2 % (0.1-12.0); Hematocrit 32.9 % (42.0-52.0); Hemoglobin 11.4 g/dL (14.1-18.0); Lymphocytes # 1.4 K/mm3 (0.7-4.5); Lymphocytes % 11.8 % (10-50); Mean Corpuscular HGB Conc 34.7 g/dL (31.8-35.4); Mean Corpuscular Volume 95.4 fl (80-94); Mean Platelet Volume 11.1 fl (7.4-10.4); Monocytes # 1.1 K/mm3 (0.1-1.0); Monocytes % 9.3 % (1.7-9.3); Neutrophils # 9.4 K/mm3 (1.8-7.8); Neutrophils % 77.8 % (37.0-80.0); Platelet Count 120 K/mm3 (142-424); Red Blood Count 3.45 M/mm3 (4.60-6.20); Red Cell Distribution Width 12.1 % (11.5-17.5)
--- NOTE | 2024-10-21 12:05 | PC.NURSE ---
1st set of blood cultures sent to lab; drawn from right AC, no complications. Pt also aware to give a urine specimen when he can. Urinal at BS
[2024-10-21] MEDS: KETOROLAC 30MG/ML VIAL 15 MG IV (12:08)
[2024-10-21 12:21] LABS: Albumin Level 3.4 g/dl (3.5-5.0); Chloride 100 mmol/L (98-107)
[2024-10-21 12:22] LABS: Potassium 3.9 mmoL/L (3.5-5.1); Sodium 133 mmol/L (136-145)
[2024-10-21 12:24] LABS: Blood Urea Nitrogen 26 mg/dl (9-20); Creatinine Clearance Estimated 63 mL/min (50-200); Estimated Glomerular Filt Rate 79 ml/min (>60); GFR (African American) 96 ML/MIN (>60)
[2024-10-21 12:25] LABS: Alanine Aminotransferase 41 U/L (12-78); Albumin/Globulin Ratio 1.1 (1.1-1.8); Alkaline Phosphatase 148 U/L (38-126); Anion Gap 8.9 mEq/L (5-15); Aspartate Amino Transferase 55 U/L (17-59); Bilirubin,Total 0.9 mg/dl (0.2-1.3); Calcium 8.5 mg/dl (8.4-10.2); Carbon Dioxide 28 mmol/L (22.0-30.0); Globulin 3.2 g/dL (1.3-3.2); Glucose 95 mg/dl (74-100); Total Protein,Serum 6.6 g/dl (6.3-8.2)
--- NOTE | 2024-10-21 12:28 | PC.NURSE ---
pt unable to void at this time
[2024-10-21 12:31] LABS: Activated Partial Thrombo Time 26.1 seconds (22.5-28.5); Fibrinogen 486 mg/dL (208.1-352.0); INR 0.97 (0.9-1.1); Prothrombin Time 10.7 seconds (9.2-12.1)
[2024-10-21 12:39] LABS: HIV Combo NEGATIVE (Negative)
[2024-10-21 12:48] LABS: Hepatitis C Ab Qual. W/ RFX NEGATIVE (Negative)
[2024-10-21 12:54] LABS: D-Dimer 1.17 ug/mL (0.0-0.5)
--- NOTE | 2024-10-21 13:19 | ED_ITS ---
Discharge Plan Disposition Patient Disposition: Home, Self-Care Condition: Fair Prescriptions Prescriptions: No Action aspirin 81 mg tablet,delayed release (DR/EC) 81 mg PO DAILY ascorbate calcium (vitamin C) 500 mg tablet 500 mg PO DAILY ferrous sulfate 325 mg (65 mg iron) tablet,delayed release (DR/EC) 325 mg PO DAILY meclizine 12.5 mg tablet 12.5 mg PO BID 90 Days Qty: 180 0RF amlodipine 5 mg tablet 5 mg PO DAILY Qty: 90 3RF atorvastatin 40 mg tablet 40 mg PO HS Qty: 90 3RF levetiracetam [Keppra] 1,000 mg tablet 1,000 mg PO BID Qty: 180 3RF levothyroxine 88 mcg tablet 88 mcg PO DAILY 90 Days Qty: 90 3RF omeprazole 20 mg capsule,delayed release(DR/EC) 20 mg PO DAILY 90 Days Qty: 90 3RF sulfamethoxazole-trimethoprim 800-160 mg tablet 1 tab PO BID Qty: 40 0RF trazodone 50 mg tablet 50 mg PO HS 30 Days Qty: 30 2RF memantine 10 mg tablet 10 mg PO BID Qty: 60 2RF quetiapine [Seroquel] 25 mg tablet 25 mg PO HS Qty: 30 2RF prednisone 50 mg tablet 50 mg PO DAILY 3 Days Qty: 3 0RF Referrals Follow up/Referrals: Jake Bermudez MD [Primary Care Provider] - See instructions Activity Restrictions/Add. Instructions Additional Instructions/Restrictions: Follow-up with Dr. Bermudez regarding this visit to the emergency department within 48 hours. Take Tylenol 1000 mg every 6 hours (4 times daily) and ibuprofen 400 mg every 6 hours (4 times daily) as needed with food and water to prevent GI upset and kidney damage. When you follow-up with Dr. Bermudez, have his clinic test your blood numbers and clotting numbers (CBC, PT, PTT, D-dimer, fibrinogen) to make sure they are not trending in the wrong direction. Return to the emergency department with any other concerning symptoms Clinical Impressions Clinical Impression: Petechiae Print Language Print Language: Bulgarian Discharge ED Provider: Edwin Tucker General Adult HPI General Chief complaint: PAIN Stated complaint: Bi-lat. leg pain Time Seen by Provider: 10/21/24 11:35 Mode of Arrival: EMS Source of Information: Patient Limitations: No Limitations Description of Symptoms (Recalled from ER Triage Doc. by RN): pt presents to ED with c/o bilateral leg pain. pt reports symptoms began last night. pt uses a walker at home for ambulation. pt reports since last night he has had difficulty ambulating with his walker due to pain in his bilateral lower feet. History of Present Illness HPI narrative: Please note that above description of symptoms, in this electronic medical record under categorization of recalled from ER triage doctor by RN are reflective of an initial nursing assessment, however, is not reflective of my full history and physical exam that was personally taken and clarified. Consequentially, this preceding description of symptoms, which may include the patient's categorized chief complaint in the EMR, do not reflect my personal clinical impression, and the ultimate description of history of present illness and patient stated complaints should be deferred to this section of the note. Unless stated otherwise or congruent with this section of the note, additional signs, symptoms, or incongruence should be interpreted as inaccurate with my clinical impression. Related Data Home Medications ?Medication ?Instructions ?Recorded ?Confirmed aspirin 81 mg tablet,delayed 81 mg PO DAILY 04/06/23 09/28/24 release ascorbate calcium (vitamin C) 500 500 mg PO DAILY 02/09/24 09/28/24 mg tablet ferrous sulfate 325 mg (65 mg 325 mg PO DAILY 02/09/24 09/28/24 iron) tablet,delayed release Previous Rx's ?Medication ?Instructions ?Recorded meclizine 12.5 mg tablet 12.5 mg PO BID dizziness 90 days 09/17/23 #180 tabs amlodipine 5 mg tablet 5 mg PO DAILY #90 tabs 04/13/24 atorvastatin 40 mg tablet 40 mg PO HS #90 tabs 04/13/24 levetiracetam 1,000 mg tablet 1,000 mg PO BID #180 tabs 04/13/24 (Keppra) levothyroxine 88 mcg tablet 88 mcg PO DAILY thyroid 90 days 04/13/24 #90 tabs omeprazole 20 mg capsule,delayed 20 mg PO DAILY 90 days #90 caps 04/13/24 release trazodone 50 mg tablet 50 mg PO HS 30 days #30 tabs 05/31/24 memantine 10 mg tablet 10 mg PO BID #60 tabs 08/16/24 quetiapine 25 mg tablet (Seroquel) 25 mg PO HS #30 tabs 08/22/24 sulfamethoxazole 800 1 tab PO BID #40 tabs 09/28/24 mg-trimethoprim 160 mg tablet prednisone 50 mg tablet 50 mg PO DAILY erythema multiforme 10/16/24 3 days #3 tabs Allergies Allergy/AdvReac Type Severity Reaction Status Date / Time No Known Allergies Allergy Verified 09/28/24 13:57 [facility] Disclaimer: The information contained in this section may have been updated after the patient was seen, as this information can be updated by other users. Medical History History of thyroid disease Cataract GERD (gastroesophageal reflux disease) History of fracture of clavicle Squamous cell cancer of scalp and skin of neck Clavicle fracture Basal cell carcinoma CVA (cerebral vascular accident) Gallstones Meniere's disease Mild acid reflux Hypertension Hypothyroidism Surgical History H/O endarterectomy Hx of cataract surgery H/O hernia repair Social History Smoking Status: Current every day smoker smoking status stop date: 10/12/1979 alcohol intake: never substance use type: denies use current occupational status: retired Travel in the last 8 weeks: None household members: spouse housing: house marital status: number of children: 3 Have you lived/traveled outside [place] in past 30 days?: No Contact w/someone who lives/traveled outside [place] past 30 days?: No Exposure to someone with infectious disease in past 14 days?: No Do you have a fever (greater than 100.4 F or 38 C)?: No Have you tested positive for COVID-19: No Exposed to someone with COVID-19 in past 14 days?: No Do you have a sore throat?: No Do you have a cough?: No Do you have any weakness?: No Do you have any diarrhea?: No Are you experiencing any unusual bleeding?: No Do you have any muscle aches/pain?: No Do you have any abdominal pain?: No Are you experiencing loss of taste or smell?: No Other Medical History Have you received the Pneumonia Vaccine: Yes ROS Obtained: Yes All systems reviewed & no additional complaints except as documented Physical Exam General General appearance: alert Head Head exam: atraumatic and normocephalic Eye Eye exam: Present normal appearance, PERRL and EOMI Neck Neck exam: Present normal inspection, full ROM and trachea midline Respiratory Respiratory exam: Absent respiratory distress, wheezes, stridor, accessory muscle use or prolonged expiratory phase Cardiovascular Cardiovascular exam: Present other (Pulses equal symmetric in upper and lower extremities) Abdominal Exam Abdominal exam: Present soft; Absent distention, tenderness or pulsatile mass Extremities Exam Extremities exam: Absent edema Neurological Exam Neurological exam: Present alert, oriented X3 and CN II-XII intact; Absent motor sensory deficit Skin Skin exam: Present warm, dry and rash; Absent diaphoresis or erythema Medical Decision Making Medical Records Medical records reviewed: Yes I reviewed the patient's medical records. Screening: Per USPSTF and CDC recommendations, given the prevalence of disease in our region, it is our hospital?s policy to screen for HIV and viral Hepatitis for all patients aged 18 and over and those with ongoing risk factors. Allen Inquiry Pt receiving controlled substance: No Allen was queried for this patient: No Vital Signs: 10/21/24 11:22 10/21/24 11:24 10/21/24 12:00 Temperature 98.3 F Temperature Source Oral Pulse Rate 82 74 Pulse Rate [Left Radial] 88 Respiratory Rate 12 18 Blood Pressure 145/78 H 140/80 Blood Pressure [Right Arm] 143/74 H Blood Pressure Mean Blood Pressure Mean [Right Arm] 97 02 Sat by Pulse Oximetry 98 99 98 Oxygen Delivery Method Room Air Room Air 10/21/24 12:15 10/21/24 13:22 10/21/24 13:30 Temperature 97.8 F Temperature Source Oral Pulse Rate 87 74 74 Pulse Rate [Left Radial] Respiratory Rate 15 15 15 Blood Pressure 136/57 L 139/74 Blood Pressure [Right Arm] Blood Pressure Mean Blood Pressure Mean [Right Arm] 02 Sat by Pulse Oximetry 98 98 99 Oxygen Delivery Method Room Air Room Air 10/21/24 14:00 10/21/24 14:23 Temperature 97.8 F Temperature Source Pulse Rate 74 74 Pulse Rate [Left Radial] Respiratory Rate 15 15 Blood Pressure 136/69 136/69 Blood Pressure [Right Arm] Blood Pressure Mean 91 Blood Pressure Mean [Right Arm] 02 Sat by Pulse Oximetry 99 Oxygen Delivery Method Room Air Lab Data Lab Results 10/21/24 11:25: WBC 12.0 H, RBC 3.45 L, Hgb 11.4 L, Hct 32.9 L, MCV 95.4 H, MCH 33.0 H, MCHC 34.7, RDW 12.1, Plt Count 120 L, MPV 11.1 H, Neut % (Auto) 77.8, Lymph % (Auto) 11.8, [place] % (Auto) 9.3, Eos % (Auto) 0.2, Baso % (Auto) 0.1, N eut # (Auto) 9.4 H, Lymph # (Auto) 1.4, [place] # (Auto) 1.1 H, Eos # (Auto) 0.0, Baso # (Auto) 0.0, HCV Ab WILL w/Rflx PCR Qn Negative 10/21/24 11:28: HIV Ag/Ab Combo Qual Negative 10/21/24 12:09: PT 10.7, INR 0.97, APTT 26.1, Fibrinogen 486 H, D-Dimer 1.17 H, Sodium 133 L, Potassium 3.9, Chloride 100, Carbon Dioxide 28, Anion Gap 8.9, BUN 26 H, Creatinine 0.90, Estimated Creat Clear 63, Estimated GFR 79, Est GFR ( Amer) 96, Glucose 95, Calcium 8.5, Total Bilirubin 0.9, AST 55, ALT 41, Alkaline Phosphatase 148 H, Total Protein 6.6, Albumin 3.4 L, Globulin 3.2, Albumin/Globulin Ratio 1.1 10/21/24 13:18: Urine Color Yellow, Urine Appearance Clear, Urine pH 5.5, Ur Specific [place] 1.020, Urine Protein Negative, Urine Glucose (UA) Negative, Urine Ketones Negative, Urine Blood Negative, Urine Nitrate Negative, Urine Bilirubin Negative, Urine Urobilinogen 0.2, Ur Leukocyte Esterase Trace, Urine RBC None, Urine WBC 5-10, Ur Squamous Epith Cells None, Urine Bacteria None 10/21/24 11:25 10/21/24 12:09 Orders (Tests/Meds): ED MEDICATIONS Discontinued Medications Generic Name Dose Route Start Last Admin Trade Name Freq PRN Reason Stop Dose Admin Ketorolac Tromethamine 15 mg 10/21/24 11:55 10/21/24 12:08 Ketorolac 30mg/Ml Vial IV 10/21/24 11:56 15 mg ONCE ONE Administration ORDERS Category Date Time Status CBC w/Auto Diff [Complete Blood Count Auto Diff] Stat Lab 10/21/24 11:25 Completed CMP [Comprehensive Metabolic Panel] Stat Lab 10/21/24 12:09 Completed D-Dimer Stat Lab 10/21/24 12:09 Completed Fibrinogen Stat Lab 10/21/24 12:09 Completed HIV Combo Stat Lab 10/21/24 11:28 Completed Hepatitis C Ab Qual. W/ RFX Stat Lab 10/21/24 11:25 Completed PT INR [Prothrombin Time INR] Stat Lab 10/21/24 12:09 Completed PTT [Activated Partial Thrombo Time] Stat Lab 10/21/24 12:09 Completed UA [Urinalysis and Microscopic] Stat Lab 10/21/24 13:18 Completed Blood Culture Stat Micro 10/21/24 12:11 Received Medical Decision Narrative: 89-year-old male presenting with rash. He states that he was diagnosed with urinary tract infection a couple of weeks prior to this. Was seen for a rash on 10/16/2024 diagnosed with erythema multiforme. Since that time, patient discontinued antibiotic, started on prednisone and Benadryl and sent home. Today, patient presents with rash on his lower extremities. Atraumatic, does not hurt, does not seem to bother patient. Only other complaint is pain in his ankles and toes when walking. No fevers or chills, chest pain, shortness of breath, dark urine, hematuria, flank pain, joint pain elsewhere, falls, change in mental status, neck stiffness, fevers, chills, etc.. History was obtained via conversation with patient. On arrival, patient hemodynamically stable, alert, oriented x4, appropriate, GCS 15, moving all extremities spontaneously, pupils equal and reactive to light. Full physical exam performed and significant for patient has purpuric rash scattered on his lower extremities. Primarily over hard surfaces of tibia, but he does have some overlying soft tissues. Tenderness about the ankles and Achilles tendons when ranging ankles. No obvious joint effusions or red, hot, swollen joints. Differential includes delayed drug reaction, thrombocytopenia, bloodstream infection, sepsis, among others Patient placed on continuous cardiac monitoring and continuous pulse ox with initial blood pressure 143/74, heart rate gait, saturation 98% on room air. Patient was given Toradol 15 mg for symptomatic management and correction of underlying abnormalities. Workup independently interpreted and significant for patient has white count of 12,000, anemia with hemoglobin 11.4 not much lower than it was previously. Platelets are low at 120 new from previous. Patient's D-dimer elevated at 1.2, but fibrinogen elevated. Other coags normal. Kidney function normal, urinalysis without concern for kidney involvement. On reevaluation, patient still resting comfortably without acute complaint. Given patient presentation, workup, history, this most likely represents delayed medication reaction. Family care physician follow-up was recommended and close return precautions were discussed. Because patient at baseline without signs or symptoms of clinical decompensation, deemed appropriate for discharge. Results were relayed to patient who voiced understanding and were agreeable to outpatient management and follow up. I discussed my clinical impression with patient and answered all questions. At this time, the evidence for any other entities in the differential is insufficient to warrant any further testing or ED observation. This was explained as well. Advisory was given that persistent or worsening symptoms require further evaluation. I confirmed the understanding of this discussion. Laborer/Grade Check disclaimer Much of this encounter note is an electronic board mill supervisor spoken language to printed text. Electronic board mill supervisor of the spoken language may permit errors. Although I have reviewed the note, some errors may still exist. Critical Care Critical Care Time Critical Care Time: No
[2024-10-21 13:23] LABS: Microscopic, Urine URINE MICROSCOPIC (MICROSCOPIC)
--- NOTE | 2024-10-21 13:27 | PC.NURSE ---
pt repositioned in bed for comfort and hooked back up to monitor. Pt giving a pillow, call light within reach, family at BS
[2024-10-21 13:39] LABS: Appearance,Urine CLEAR (Clear); Bilirubin,Urine Negative (Negative); Blood, Urine Negative (Negative); Color,Urine YELLOW (Yellow); Glucose,Urine (UA) Negative (Negative); Ketones,Urine Negative (Negative); Leukocyte Esterase,Urine TRACE (Negative); Nitrate,Urine Negative (Negative); PH,Urine 5.5 (5.0-8.5); Protein,Urine Negative (Negative); Urobilinogen,Urine 0.2 EU/dl (0.2)
== END 2024-10-21 14:23 | disposition home or self-care (01) ==
PROVIDERS: Emergency Provider Emergency Medicine; PCP Family Medicine
DX: R23.3 Spontaneous ecchymoses (principal); R21 Rash and other nonspecific skin eruption; M79.604 Pain in right leg; M79.605 Pain in left leg; M79.671 Pain in right foot; M79.672 Pain in left foot; R26.81 Unsteadiness on feet
CPT/HCPCS: 80053; 81001; 85025; 85378; 85384; 85610; 85730; 86803; 87040; 87389; 96374; 99283; J1885